=== PATIENT | male | born 1980 | race Caucasian/White ===

== ENCOUNTER 2018-01-10 00:26 | Emergency (ER) | payer SELFPAY ==
[2018-01-10 00:35] VITALS: BP 134/85
[2018-01-10] MEDS ORDERED: DEXAMETHASONE 10 MG/ML VIAL PO STA (01:35)
[2018-01-10] MEDS ORDERED: HYDROcod/ACET 5/325 Prepack 4 PO STA (01:36)
--- NOTE | 2018-01-10 01:39 | ED Physician Documentation ---
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 About 3 days ago he began to experience worsening of his pain that is not going away with his usual remedies. He has usually been able to control his symptoms with use of wrist splints and Tylenol. In the past he has had to take a course of prednisone and he has been on some pain medication previously he states the pain is as bad as he is ever had it. He also indicates that he has stopped the usual work that he was doing and has assumed in a supervisory role and despite that he continues to have this pain. Prior to that he was working 7 days a week in order to get the job done to go home earlier. Review of Systems Constitutional: denies: Fever, Chills Eyes: denies: Decreased vision Ears: denies: Ear pain Nose: denies: Rhinorrhea / runny nose, Congestion Throat: denies: Sore throat Cardiac: denies: Chest pain / pressure, Palpitations Respiratory: denies: Dyspnea, Cough GI: denies: Abdominal Pain, Nausea, Vomiting : denies: Dysuria Musculoskeletal: reports: Extremity pain, Joint pain, Extremity swelling. denies: Neck pain, Back pain Neurologic: reports: Numbness. denies: Generalized weakness, Focal weakness PD PAST MEDICAL HISTORY - Past Medical History Past Medical History: Yes Other Past Medical History: Carpal tunnel - Past Surgical History Past Surgical History: No - Present Medications Home Medications: Ambulatory Orders Medication Instructions Recorded Confirmed Acetaminophen [Tylenol Extra 1,000 mg PO TID PRN 01/10/18 01/10/18 Strength] Gabapentin [Neurontin] 1,200 mg PO TID 01/10/18 01/10/18 HYDROcod/ACETAM 5/325 [Arp 5/325] 1 - 2 ea PO Q6H PRN #15 tablet 01/10/18 Ibuprofen [Motrin] 800 mg PO Q8HR PRN 01/10/18 01/10/18 - Allergies Allergies/Adverse Reactions: Allergies Allergy/AdvReac Type Severity Reaction Status Date / Time tramadol [From Ultram] Allergy Edema Verified 01/10/18 00:35 amoxicillin AdvReac Rash Verified 01/10/18 00:35 - Social History Does the pt smoke?: No Smoking Status: Never smoker Does the pt drink ETOH?: Yes Does the pt have substance abuse?: No - Immunizations Immunizations are current?: Yes - POLST Patient has POLST: No PD ED PE NORMAL - Vitals Vital signs reviewed: Yes (hyeprtensive ) - General General: Alert and oriented X 3, Well developed/nourished, Other (anxious appearing male shaking his hands for relief) - HEENT HEENT: Atraumatic, PERRL, EOMI - Neck Neck: Supple, no meningeal sign - Respiratory Respiratory: No respiratory distress - Derm Derm: Normal color, Warm and dry, No rash - Extremities Extremities: No deformity, Other (There is fullness to the wrists bilaterally and the forearms. 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 The patient is administered dexamethasone 10 mg orally he will continue to use his splints and reduce his activity we have provided some hydrocodone. Departure - Departure Disposition: 01 Home, Self Care Clinical Impression: Carpal tunnel syndrome Qualifiers: Laterality: bilateral Qualified Code(s): G56.03 - Carpal tunnel syndrome, bilateral upper limbs Condition: Stable Instructions: ED Carpal Tunnel Follow-Up: Your, doctor [Other] Prescriptions: HYDROcod/ACETAM 5/325 [Arp 5/325] 1 - 2 ea PO Q6H PRN #15 tablet PRN Reason: Pain
[2018-01-10] MEDS ORDERED: CHERRY SYRUP 10 ML UDC PO ONE (01:42)
== END 2018-01-10 01:50 | disposition home or self-care (01) ==
LOC: ED 00:26
DX: G56.03 Carpal tunnel syndrome, bilateral upper limbs (principal)
CPT/HCPCS: 99283; A9270